=== PATIENT | male | born 1995 | race Caucasian/White ===

== ENCOUNTER 2020-03-13 21:43 | Emergency (ER) | payer OTHER ==
[~2020-03-13] VITALS: Ht 177.8 cm; Wt 82.7 kg
[2020-03-13] MEDS ORDERED: KETOROLAC 60 MG/2 ML ONE (22:23)
[2020-03-13] MEDS ORDERED: OXYcodone/APAP 5/325MG TABLET ONE (22:24)
[2020-03-13] MEDS ORDERED: OXYcodone/APAP 5/325MG TABLET PO ONE (22:30)
[2020-03-13] MEDS ORDERED: KETOROLAC 30 MG/1 ML IM ONE (22:30)
[2020-03-13 22:37] LABS: BASOPHILS % (AUTO) 1 % (0-1); EOSINOPHILS % (AUTO) 2 % (1-7); LYMPHOCYTES % (AUTO) 19 % (22-44); MEAN CORPUSCULAR HEMOGLOBIN 29.9 pg (27.5-34.5); MEAN CORPUSCULAR HGB CONC 33.7 g/dL (33.2-36.2); MEAN PLATELET VOLUME 8.4 fL (7.4-10.4); MONOCYTES % (AUTO) 8 % (2-9); NEUTROPHILS % (AUTO) 71 % (42-75); PLATELET COUNT 269 x10^3/uL (130-400); RED BLOOD COUNT 4.61 x10^6/uL (4.38-5.82); RED CELL DISTRIBUTION WIDTH 12.8 % (9.4-14.8)
--- NOTE | 2020-03-13 22:37 | NUR ---
PT MEDICATED PER MAR. MONITORING IN PLACE, CALL LIGHT WITHIN REACH. PT UPDATED ON POC.
[2020-03-13 22:39] LABS: MD NO
[2020-03-13 22:41] LABS: MICROSCOPIC NOT IND
[2020-03-13 22:42] LABS: ALBUMIN 3.9 g/dL (3.4-5.0); ANION GAP 4 mmol/L (5-15); CALCIUM 8.8 mg/dL (8.5-10.1); CHLORIDE 106 mmol/L (98-107); CREATININE 1.75 mg/dL (0.7-1.3)
--- NOTE | 2020-03-14 00:29 | NUR ---
PT UPDATED ON POC. MONITORING IN PLACE, CALL LIGHT WITHIN REACH.
[2020-03-14 00:56] VITALS: BP 115/66
== END 2020-03-14 01:28 | disposition home or self-care (01) ==
LOC: ED 22:36
DX: N28.9 Disorder of kidney and ureter, unspecified (principal); N43.3 Hydrocele, unspecified; N50.812 Left testicular pain; N50.811 Right testicular pain; R10.9 Unspecified abdominal pain
CPT/HCPCS: 36415; 74176; 76870; 80048; 81003; 82040; 85025; 96372; 99285; J1885